=== PATIENT | female | born 1985 | race Caucasian/White ===

== ENCOUNTER → 2017-06-14 | Outpatient (CLI) | payer OTHER ==
--- NOTE | 2017-06-14 15:45 | US ---
EXAMINATION TYPE: US venous doppler duplex LE LT DATE OF EXAM: 06/14/2017 3:34 PM COMPARISON: NONE CLINICAL HISTORY: M25.562 PAIN IN LT KNEE. No hx of blood clots or on blood thinners. Patients state s falling 16 days ago. No swelling or redness. SIDE PERFORMED: Left TECHNIQUE: The lower extremity deep venous system is examined utilizing real time linear array sonog [place] with graded compression, doppler sonography and color-flow sonography. VESSELS IMAGED: External Iliac Vein (EIV) Common Femoral Vein Deep Femoral Vein Greater Saphenous Vein * Femoral Vein Popliteal Vein Small Saphenous Vein * Proximal Calf Veins (* superficial vessels) Grayscale, color doppler, spectral doppler imaging performed of the deep veins of the lower extremity . There is normal flow, compressibility, vascular waveforms. Left Leg: Appears negative for DVT IMPRESSION: No evidence of DVT.
== END | disposition home or self-care (01) ==
LOC: RADUSWWP 15:07
PROVIDERS: ATTEND Orthopaedic Surgery
DX: I80.9 Phlebitis and thrombophlebitis of unspecified site (principal); S72.425A Nondisplaced fracture of lateral condyle of left femur, initial encounter for closed fracture

== ENCOUNTER 2020-05-10 09:27 | Day surgery (SDC) | payer OTHER ==
[2020-05-07 11:12] VITALS: BMI 40.3
[~2020-05-10 09:27] MED LIST: LACTATED RINGERS 1,000 ML IV SCH; LIDOCAINE 1% (10MG/ML) FOR IV START INTRADERMA PRN
[2020-05-10 09:57] VITALS: TEMP 97.7
[2020-05-10] MEDS ORDERED: PROPOFOL 10 MG/ML 20 ML VIAL IV ONE (10:46)
[2020-05-10] MEDS ORDERED: LIDOCAINE 1% INJ 10MG/ML (20 ML MDV) ONE (10:46)
--- NOTE | 2020-05-10 10:57 | P.PCN ---
Date of Procedure: 05/10/20 Procedure(s) Performed: BRIEF HISTORY: Patient is a 34-year-old, pleasant, white female scheduled for an upper endoscopy as a part of evaluation of GERD/abdominal bloating for the last several months duration. She is currently on Prilosec 20 mg daily with no help and hence was recently started on Carafate 1 g twice daily and is a somewhat better.. PROCEDURE PERFORMED: Esophagogastroduodenoscopy with biopsy. PREOPERATIVE DIAGNOSIS: GERD/abdominal bloating. IV sedation per anesthesia. PROCEDURE: After informed consent was obtained, the patient was brought into the endoscopy unit. IV sedation was administered by Anesthesia under continuous monitoring. Initially the Olympus GIF-140 video endoscope was inserted into the mouth. Esophagus intubated without any difficulty. It was gradually advanced into the stomach and duodenum and carefully examined. The bulb and the second part of the duodenum appeared normal. Abscesses were done from the duodenum to rule out celiac disease. The scope at this time was withdrawn to the stomach, adequately insufflated with air, and upon careful examination, mucosa of the antrum had mild gastritis and biopsies were done from this area. The, body, cardia and the fundus appeared normal. The scope was then withdrawn into the esophagus. The GE junction was located at 39 cm from the incisors. The esophagus appeared normal. There were no erosions or ulcerations seen, biopsies were done from the distal esophagus and the patient tolerated the procedure well. IMPRESSION: 1. Mild antral gastritis 2, No evidence of esophagitis or peptic ulcer disease RECOMMENDATIONS: The findings of this examination were discussed with the patient as well as a family. She was advised to follow with the biopsy results. In the meantime she was advised to increase omeprazole to 20 mg twice daily to be taken half hour before breakfast and dinnertime and follow antireflux measures. She will continue with Carafate 1 g twice daily. She will be seen in office in 2-3 weeks.
[2020-05-10 11:05] VITALS: BP 100/67
[2020-05-10 11:26] VITALS: PULSE 68; RESP 16
== END 2020-05-10 11:44 | disposition home or self-care (01) ==
LOC: ORWHC2ENDO 09:27
PROVIDERS: ATTEND Internal Medicine Gastroenterology
DX: K21.00 Gastro-esophageal reflux disease with esophagitis, without bleeding (principal); K29.50 Unspecified chronic gastritis without bleeding; K08.89 Other specified disorders of teeth and supporting structures; Z79.899 Other long term (current) drug therapy; Z79.3 Long term (current) use of hormonal contraceptives; Z88.0 Allergy status to penicillin; Z98.890 Other specified postprocedural states
CPT/HCPCS: 81025; 88305; 43239; J2001; J2704

== ENCOUNTER 2020-09-30 09:17 | Observation (INO) | payer OTHER ==
[~2020-09-30 09:17] MED LIST changes: +ACETAMINOPHEN TAB 500 MG TAB PO PRN; +HEPARIN SODIUM,PORCINE/PF 5,000 UNIT/0.5 ML SYRINGE SQ PRN; -LACTATED RINGERS 1,000 ML IV SCH
[2020-09-30] MEDS: LACTATED RINGERS 1,000 ML IV SCH ×3 (10:38→15:14)
[2020-09-30] MEDS: ONDANSETRON 4 MG/2 ML VIAL IVP ONE ×2 (10:45→15:14)
[2020-09-30] MEDS: DEXAMETHASONE SOD PHOSPHATE 4 MG/ML 1 ML VIAL IV ONE ×2 (10:45→15:14)
[2020-09-30 10:54] LABS: Basophils # (A) 0.1 k/uL (0-0.2); Basophils % (A) 1 %; Eosinophils # (A) 0.1 k/uL (0-0.7); Eosinophils % (A) 1 %; HCT 40.9 % (34.0-46.0); HGB 14.2 gm/dL (11.4-16.0); Lymphocytes # (A) 2.3 k/uL (1.0-4.8); Lymphocytes % (A) 30 %; MCH 31.9 pg (25.0-35.0); MCHC 34.7 g/dL (31.0-37.0); MCV 91.8 fL (80.0-100.0); Mean Platelet Volume 8.4; Monocytes # (A) 0.4 k/uL (0-1.0); Monocytes % (A) 5 %; Neutrophils # (A) 4.8 k/uL (1.3-7.7); Neutrophils % (A) 62 %; Platelet Count 249 k/uL (150-450); RBC 4.46 m/uL (3.80-5.40); RDW 12.3 % (11.5-15.5); WBC 7.8 k/uL (3.8-10.6)
[2020-09-30] MEDS ORDERED: BUPIVACAINE (PF) 0.25% 30 ML VIAL SQ ONE ×2 (12:26→13:00)
[2020-09-30] MEDS ORDERED: MIDAZOLAM 2 MG/2 ML VIAL IV ONE (12:31)
[2020-09-30] MEDS ORDERED: LIDOCAINE 1% INJ 10MG/ML (20 ML MDV) ONE (12:39)
[2020-09-30] MEDS ORDERED: fentaNYL (PF) 50 MCG/ML 2 ML AMP ONE (12:39)
[2020-09-30] MEDS ORDERED: NEOSTIGMINE 1 MG/ML 10 ML VIAL ONE (12:39)
[2020-09-30] MEDS ORDERED: ROCURONIUM 10 MG/ML (5 ML VIAL) IV ONE (12:39)
[2020-09-30] MEDS ORDERED: HYDROmorphone (PF) 1 MG/ML ONE (12:39)
[2020-09-30] MEDS ORDERED: PROPOFOL 10 MG/ML 20 ML VIAL IV ONE (12:39)
[2020-09-30] MEDS ORDERED: KETAMINE 10 MG/ML 20 ML VIAL ONE (12:39)
[2020-09-30] MEDS ORDERED: SUCCINYLCHOLINE CHLORIDE VIAL 200 MG/10 ML VIAL IV ONE (12:39)
[2020-09-30] MEDS ORDERED: MIDAZOLAM 2 MG/2 ML VIAL ONE (12:39)
[2020-09-30] MEDS ORDERED: GLYCOPYRROLATE 0.2 MG/ML 2 ML VIAL ONE (12:39)
--- NOTE | 2020-09-30 13:26 | P.GSHP ---
History of Present Illness H&P Date: 09/30/20 Chief Complaint: GERD Is a 34-year-old female who safer laparoscopic dislocation. She is less lifetime problems with GERD. She's been refractory to medical therapy. Past Medical History Past Medical History: GERD/Reflux Additional Past Medical History / Comment(s): . History of Any Multi-Drug Resistant Organisms: None Reported Past Surgical History: Section Past Anesthesia/Blood Transfusion Reactions: Postoperative Nausea & Vomiting (PONV) Smoking Status: Former smoker - Past Family History Mother Family Medical History: Hypertension Medications and Allergies Home Medications Medication Instructions Recorded Confirmed Type Etonogestrel [Nexplanon] 1 implant SQ [id number] 05/07/20 09/30/20 History Calcium Carbonate [Tums] 500 mg PO QID PRN 09/27/20 09/30/20 History L.acidoph,Paracasei, B.lactis 1 each PO DAILY 09/27/20 09/30/20 History [Probiotic] Allergies Allergy/AdvReac Type Severity Reaction Status Date / Time amoxicillin Allergy Swelling Verified 09/30/20 10:15 Surgical - Exam Vital Signs Temp Pulse Resp BP Pulse Ox 98.0 F 62 18 121/72 100 09/30/20 10:17 09/30/20 10:17 09/30/20 10:17 09/30/20 10:17 09/30/20 10:17 - General well developed, well nourished, no distress - Eyes PERRL - ENT normal pinna - Neck no masses - Respiratory normal expansion - Cardiovascular Rhythm: regular - Abdomen Abdomen: soft, non tender Results - Labs 09/30/20 10:38 Assessment and Plan Plan: . GERD. We'll perform laparoscopic Betty fundoplication.
[2020-09-30] MEDS ORDERED: HYDROmorphone 1 MG/ML 1 ML SYRINGE IVP PRN (13:27)
--- NOTE | 2020-09-30 13:27 | P.OP ---
Date of Procedure: 09/30/20 Preoperative Diagnosis: GERD Postoperative Diagnosis: GERD Procedure(s) Performed: Laparoscopic Betty fundoplication Anesthesia: DINORAH Surgeon: Eder Still Estimated Blood Loss (ml): 10 Pathology: none sent Condition: stable Disposition: PACU Description of Procedure: The patient was placed on the operating table in the supine position. The patient received general anesthesia. And was placed in dorsal lithotomy position. The patient was prepped and draped in the usual sterile fashion. The skin incision sites were anesthetized with 1% local Xylocaine. The skin was incised in the left periumbilical area and then using a blade less 5 mm trocar under direct visualization panel cavity was entered. After adequate insufflation the laparoscope was then placed into the peritoneal cavity. Next a 5 mm trochars placed in the right epigastric position. Another 5 millimeter trocar the right lateral position. Another 5 millimeter trocar in the left lateral position a 5 mm trocar is placed in the left epigastric position. And then the initial 5 mm trocar was exchanged for a 10 mm trocar. The left lateral lobe liver was retracted. The hernia was seen. The crural defect was then dissected using the Harmonic scissors device. A 360 crural dissection was pe rformed the esophagus stomach was reduced back into the peritoneal Cavity. The crural defect was then closed using 2-0 Ethibond suture. Next the fundus of the stomach was mobilized using the [place] scissors device. and then a 58-Cro[place] bougie dilator was placed oropharynx passed into the esophagus and stomach the fundal plication wrap was then performed by grasping the fundus posteriorly and bringing it around the esophagus and stomach fundoplication was then performed using 2-0 Ethibond suture. Care was taken that the fundal location rested over top of the intra-abdominal esophagus. There was no injury seen to the stomach or esophagus. The dilator was then withdrawn. The abdomen was irrigated there is no bleeding seen. The trochars were then withdrawn and then skin incision sites were closed using 3-0 Monocryl suture Steri-Strips are applied. Patient thought procedure well and sent to recovery room in stable condition.
--- NOTE | 2020-09-30 14:54 | P.CONS ---
History of Present Illness - Reason for Consult Perioperative consultation management. - History of Present Illness This is a pleasant 34-year-old female admitted for laparoscopic Betty's fundoplication. Patient is awake and alert at this time no nausea no vomiting post surgical pain is well controlled at this time patient doesn't have any Adams catheter no evidence of infection. Review of Systems PHYSICAL EXAMINATION: GENERAL: The patient is alert and oriented x3, not in any acute distress. Well developed, well nourished. Obese HEENT: Pupils are round and equally reacting to light. EOMI. No scleral icterus. No conjunctival pallor. Normocephalic, atraumatic. No pharyngeal erythema. No thyromegaly. CARDIOVASCULAR: S1 and S2 present. No murmurs, rubs, or gallops. PULMONARY: Chest is clear to auscultation, no wheezing or crackles. ABDOMEN: Soft, nontender, nondistended, normoactive bowel sounds. No palpable organomegaly. Surgical site areas appears to be clean MUSCULOSKELETAL: No joint swelling or deformity. EXTREMITIES: No cyanosis, clubbing, or pedal edema. NEUROLOGICAL: Gross neurological examination did not reveal any focal deficits. SKIN: No rashes. Past Medical History Past Medical History: GERD/Reflux Additional Past Medical History / Comment(s): . History of Any Multi-Drug Resistant Organisms: None Reported Past Surgical History: Section Past Anesthesia/Blood Transfusion Reactions: Postoperative Nausea & Vomiting (PONV) Smoking Status: Former smoker - Past Family History Mother Family Medical History: Hypertension Medications and Allergies Home Medications Medication Instructions Recorded Confirmed Type Etonogestrel [Nexplanon] 1 implant SQ [id number] 05/07/20 09/30/20 History Calcium Carbonate [Tums] 500 mg PO QID PRN 09/27/20 09/30/20 History L.acidoph,Paracasei, B.lactis 1 each PO DAILY 09/27/20 09/30/20 History [Probiotic] Allergies Allergy/AdvReac Type Severity Reaction Status Date / Time amoxicillin Allergy Swelling Verified 09/30/20 10:15 Physical Exam Vitals: Vital Signs Temp Pulse Pulse Resp BP BP Pulse Ox 09/30/20 14:21 61 16 106/59 98 09/30/20 14:06 58 L 16 107/57 96 09/30/20 13:55 60 16 107/57 96 09/30/20 13:40 63 16 119/68 98 09/30/20 13:25 98 F 80 16 126/75 97 09/30/20 10:17 98.0 F 62 18 121/72 100 Intake and Output 09/29/20 09/30/20 09/30/20 22:59 06:59 14:59 Intake Total 850 Output Total 5 Balance 845 Intake: IV 850 Output: Estimated Blood Loss 5 Other: Weight 115.9 kg PHYSICAL EXAMINATION: GENERAL: The patient is alert and oriented x3, not in any acute distress. Well developed, well nourished. HEENT: Pupils are round and equally reacting to light. EOMI. No scleral icterus. No conjunctival pallor. Normocephalic, atraumatic. No pharyngeal erythema. No thyromegaly. CARDIOVASCULAR: S1 and S2 present. No murmurs, rubs, or gallops. PULMONARY: Chest is clear to auscultation, no wheezing or crackles. ABDOMEN: Soft, nontender, nondistended, normoactive bowel sounds. No palpable organomegaly. MUSCULOSKELETAL: No joint swelling or deformity. EXTREMITIES: No cyanosis, clubbing, or pedal edema. NEUROLOGICAL: Gross neurological examination did not reveal any focal deficits. SKIN: No rashes. Results CBC & Chem 7: 09/30/20 10:38 Assessment and Plan Plan: -Gastroesophageal reflux disease patient is a status post Betty's fundoplication pain is well controlled at this time continue with present pain medications. -Due to prophylaxis Lovenox. -GI prophylaxis with the Protonix
[2020-09-30] MEDS: METOCLOPRAMIDE 5 MG/ML 2 ML VIAL IVP SCH (17:35)
--- NOTE | 2020-09-30 17:35 | FL ---
EXAMINATION TYPE: FL esophagus cervic/pharynx DATE OF EXAM: 09/30/2020 HISTORY: Postop hernia repair. Concern for leak. COMPARISON: NONE TECHNIQUE: A single contrast esophagram is performed utilizing water-soluble contrast. Isovue-[id number] us ed. FINDINGS: Preliminary radiograph demonstrates small volume pneumoperitoneum as expected postoperatively. There was focal contrast seen within the distal esophagus which had somewhat of a diverticular. On in itial imaging, however could not be duplicated consistently on subsequent images, and may have been r elated to mucous/debris within the esophagus. There is minimal to no significant narrowing at the lev el of the proximal stomach. There is near-complete delayed esophageal emptying. No abnormal contrast extravasation. Total fluoroscopy time: 1 minute 30 seconds. Total images obtained: 8 IMPRESSION: 1. No abnormal contrast extravasation. 2. Minimal to no significant narrowing at the proximal stomach postoperative site. 3. Small volume pneumoperitoneum as expected postoperatively. 4. Questionable esophageal diverticulum distally. Follow-up esophagram could be obtained after recove ry from postoperative state for further evaluation.
[2020-09-30] MEDS: ONDANSETRON 4 MG/2 ML VIAL IVP PRN (20:59)
[2020-09-30] MEDS: D5-0.45% NACL WITH KCL 20MEQ/L 1,000 ML IV SCH ×2 (21:45)
[2020-10-01] MEDS: METOCLOPRAMIDE 5 MG/ML 2 ML VIAL IVP SCH ×3 (01:04→12:17)
[2020-10-01] MEDS: D5-0.45% NACL WITH KCL 20MEQ/L 1,000 ML IV SCH (05:10)
[2020-10-01] MEDS: ONDANSETRON 4 MG/2 ML VIAL IVP PRN (05:12)
[2020-10-01 08:53] VITALS: PULSE 88; RESP 16
[2020-10-01] MEDS ORDERED: PANTOPRAZOLE 40 MG/10 ML VIAL IVP SCH (09:00)
[2020-10-01] MEDS ORDERED: ENOXAPARIN 40 MG/0.4 ML SYRINGE SQ SCH (09:00)
[2020-10-01] MEDS: ACETAMINOPHEN TAB 325 MG TAB PO PRN ×2 (09:01→14:23)
[2020-10-01] MEDS ORDERED: SIMETHICONE 80 MG CHEWABLE PO PRN (10:04)
[2020-10-01 12:45] VITALS: BMI 38.8
--- NOTE | 2020-10-01 13:58 | P.DS ---
Providers Date of admission: 09/30/20 23:09 Expected date of discharge: 10/01/20 Attending physician: Eder Still Consults: 09/30/20 13:27 Consult Physician Routine Consulting Provider: Gali Woodard Consult Reason/Comments: Medical management Do you want consulting provider notified?: Yes Primary care physician: [facility] Course: Discharge diagnosis 1. GERD status post laparoscopic Betty fundoplication Hospital course This is a 34-year-old female with a known history of GERD. She is status post laparoscopic Betty fundoplication. She tolerated surgery well. Upper GI shows no abnormal contrast extravasation. Minimal to no significant narrowing at the proximal stomach postoperative site. Patient is tolerating the Betty clear liquid diet. She is passing gas. She has been up and ambulating. Her pain is controlled. She's afebrile. She is stable for discharge. Please refer to chart for any further details. 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 Signing provider agrees with the documented findings, assessment, and plan of care. Patient Condition at Discharge: Stable Plan - Discharge Summary Discharge Rx Participant: No New Discharge Prescriptions: New Simethicone Chew [Mylicon Chew] 80 mg PO QID PRN #30 chew PRN Reason: gas Acetaminophen Tab [Tylenol Tab] 650 mg PO Q4H PRN #30 tablet PRN Reason: Pain Continue Etonogestrel [Nexplanon] 1 implant SQ [id number] Calcium Carbonate [Tums] 500 mg PO QID PRN PRN Reason: gerd L.acidoph,Paracasei, B.lactis [Probiotic] 1 each PO DAILY Discharge Medication List Etonogestrel [Nexplanon] 1 implant SQ [id number] 05/07/20 [History] Calcium Carbonate [Tums] 500 mg PO QID PRN 09/27/20 [History] L.acidoph,Paracasei, B.lactis [Probiotic] 1 each PO DAILY 09/27/20 [History] Acetaminophen Tab [Tylenol Tab] 650 mg PO Q4H PRN #30 tablet 10/01/20 [Rx] Simethicone Chew [Mylicon Chew] 80 mg PO QID PRN #30 chew 10/01/20 [Rx] Follow up Appointment(s)/Referral(s): Eder Still MD [STAFF PHYSICIAN] - 1 Week Activity/Diet/Wound Care/Special Instructions: No lifting over 10 pounds You may shower. No soaking or tub baths for 2 weeks Very light activity until you are reevaluated at your follow up appointment with your surgeon Discharge Disposition: HOME SELF-CARE
[2020-10-01 14:06] VITALS: BP 127/78; TEMP 98
--- NOTE | 2020-10-01 16:37 | P.PN ---
Subjective This is a pleasant 34-year-old female admitted for laparoscopic Betty's fundoplication. Patient is awake and alert at this time no nausea no vomiting post surgical pain is well controlled at this time patient doesn't have any Adams catheter no evidence of infection. 10/01/2020 Patient is having mild nausea although patient the is passing gas and the patient upper GI series did not show any extravasation. Patient is being discharged today. Constitutional: Denied any fatigue denied any fever. Cardio vascular: denied any chest pain, palpitations Gastrointestinal denied any vomiting Pulmonary: Denied any shortness of breath cough Neurologic denied any new focal deficits All inpatient medications were reviewed and appropriate changes in these medications as dictated in the interval history and assessment and plan. Objective - Vital Signs Vital signs: Vital Signs Temp 98.0 F 10/01/20 14:00 Pulse 88 10/01/20 08:30 Resp 16 10/01/20 14:00 BP 127/78 10/01/20 14:00 Pulse Ox 99 10/01/20 14:00 Intake & Output 09/30/20 10/01/20 10/01/20 18:59 06:59 18:59 Intake Total 850 1375 500 Output Total 5 Balance 845 1375 500 Weight 115.9 kg 115.9 kg Intake: IV 850 Intake, IV Titration 1375 Amount D5-0.45% NaCl with KCl 1375 20Meq/l 1,000 ml @ 125 mls/hr IV .Q8H [facility] Rx#: [id number] Oral 500 Output: Estimated Blood Loss 5 Other: Voiding Method Toilet # Voids 0 4 1 - Exam PHYSICAL EXAMINATION: GENERAL: The patient is alert and oriented x3, not in any acute distress. Well developed, well nourished. HEENT: Pupils are round and equally reacting to light. EOMI. No scleral icterus. No conjunctival pallor. Normocephalic, atraumatic. No pharyngeal erythema. No thyromegaly. CARDIOVASCULAR: S1 and S2 present. No murmurs, rubs, or gallops. PULMONARY: Chest is clear to auscultation, no wheezing or crackles. ABDOMEN: Soft, nontender, nondistended, normoactive bowel sounds. No palpable organomegaly. MUSCULOSKELETAL: No joint swelling or deformity. EXTREMITIES: No cyanosis, clubbing, or pedal edema. NEUROLOGICAL: Gross neurological examination did not reveal any focal deficits. SKIN: No rashes. - Labs CBC & Chem 7: 09/30/20 10:38 Assessment and Plan Plan: -Gastroesophageal reflux disease patient is a status post Betty's fundoplication patient is clinically doing well and is being discharged today Patient is medically stable to be discharged.
== END 2020-10-01 14:50 | disposition home or self-care (01) ==
LOC: OR 09:17 → 6PED 13:16 → OR 23:09 → 6PED 23:09
PROVIDERS: ADMIT Surgery; ATTEND Surgery
DX: K21.9 Gastro-esophageal reflux disease without esophagitis (principal); Z20.822 Contact with and (suspected) exposure to COVID-19; E66.9 Obesity, unspecified; Z68.38 Body mass index [BMI] 38.0-38.9, adult; Z88.0 Allergy status to penicillin; Z88.8 Allergy status to other drugs, medicaments and biological substances; Z98.891 History of uterine scar from previous surgery; Z87.891 Personal history of nicotine dependence; Z82.49 Family history of ischemic heart disease and other diseases of the circulatory system
CPT/HCPCS: 43280; 81025; 85025; 87635; 74210; G0378 ×2; J2250; J1100; J0690; J2405 ×2; J1650; C9113; Q9967; J1644

== ENCOUNTER → 2021-01-10 | Outpatient (CLI) | payer OTHER ==
--- NOTE | 2021-01-10 12:24 | FL ---
EXAMINATION TYPE: FL UGI air w esophagus DATE OF EXAM: 01/10/2021 COMPARISON: Postoperative esophagram 09/30/2020 HISTORY: 35-year-old female R1 3.19, dysphagia. Patient with Betty fundoplication 3 months ago with epigastric pain. TECHNIQUE: A double contrast UGI study is performed. A total of 4 minutes 32 seconds of fluoroscopi c time was utilized during procedure and 51 images obtained. FINDINGS: The swallowing mechanism is normal and hypopharyngeal anatomy is preserved. The cervical and thoracic portions have a normal course and motility. There is mild narrowing at the GE junction with evidence of prior Betty fundoplication. On the upright swallowing, there is only at the distal esophagus and delayed clearance. A few episodes of intraesophageal reflux are noted. The mucosa is normal and no persistent filling defect is encountered. No recurrent hiatal hernia. Gastroesophageal reflux could not be elicited. The stomach and duodenum are free of any persistent filling defect. There may be mild fold thickening within the stomach. Again, postsurgical changes of Betty fundoplication. IMPRESSION: 1. Status post Betty fundoplication with mild narrowing at the GE junction. Findings could represent a slightly tight wrap. On upright swallowing, there is pooling in the distal esophagus and a few epi sodes of intraesophageal reflux noted. 2. No recurrent hiatal hernia or mucosal lesion. 3. Some gastric fold thickening could represent a mild gastritis.
== END | disposition home or self-care (01) ==
LOC: RADUSWWP 08:51
PROVIDERS: ATTEND Surgery
DX: R13.19 Other dysphagia (principal)
CPT/HCPCS: 74246

== ENCOUNTER 2021-01-20 10:11 | Day surgery (SDC) | payer OTHER ==
[2021-01-19 11:12] VITALS: BMI 38.7
[~2021-01-20 10:11] MED LIST changes: -ACETAMINOPHEN TAB 500 MG TAB PO PRN; -HEPARIN SODIUM,PORCINE/PF 5,000 UNIT/0.5 ML SYRINGE SQ PRN; +LACTATED RINGERS 1,000 ML IV SCH; -LIDOCAINE 1% (10MG/ML) FOR IV START INTRADERMA PRN
[2021-01-20 11:01] VITALS: TEMP 97.7
[2021-01-20] MEDS ORDERED: LIDOCAINE 1% INJ 10MG/ML (20 ML MDV) ONE (11:50)
[2021-01-20] MEDS ORDERED: PROPOFOL 10 MG/ML 20 ML VIAL IV ONE (11:50)
--- NOTE | 2021-01-20 11:54 | P.GSHP ---
History of Present Illness H&P Date: 01/20/21 Chief Complaint: Dysphagia This a 35-year-old female who's had complaints dysphagia. She'll stay for EGD and possible dilatation Past Medical History Past Medical History: GERD/Reflux Additional Past Medical History / Comment(s): . History of Any Multi-Drug Resistant Organisms: None Reported Past Surgical History: Section Additional Past Surgical History / Comment(s): sheron fundoplication Past Anesthesia/Blood Transfusion Reactions: Postoperative Nausea & Vomiting (PONV) Smoking Status: Former smoker - Past Family History Mother Family Medical History: Hypertension Medications and Allergies Home Medications Medication Instructions Recorded Confirmed Type No Known Home Medications 01/19/21 01/19/21 History Allergies Allergy/AdvReac Type Severity Reaction Status Date / Time amoxicillin Allergy Swelling Verified 01/20/21 10:56 metoclopramide [From Reglan] AdvReac Unknown Verified 01/20/21 10:56 Surgical - Exam Vital Signs Temp Pulse Resp BP Pulse Ox 97.7 F 65 16 115/69 96 01/20/21 10:59 01/20/21 10:59 01/20/21 10:59 01/20/21 10:59 01/20/21 10:59 - General well developed, well nourished, no distress - Eyes PERRL - ENT normal pinna - Neck no masses - Respiratory normal expansion Assessment and Plan Plan: Dysphagia, we'll perform EGD with possible dilatation.
--- NOTE | 2021-01-20 12:07 | P.OP ---
Date of Procedure: 01/20/21 Preoperative Diagnosis: Dysphagia Postoperative Diagnosis: Antral gastritis Possible stricture of GE junction Procedure(s) Performed: EGD with balloon dilatation Anesthesia: MAC Surgeon: Eder Still Pathology: other (Antrum) Condition: stable Disposition: PACU Description of Procedure: The patient's placed on the endoscopy table in the lateral position her she received IV sedation. The gastroscope patient oropharynx passed in the esophagus into the stomach. Scope was placed through the pylorus. The first and second portion of the duodenum appeared normal. Scope was then brought back the antrum was mildly inflamed. A biopsies performed. Scope was then retroflexed and the remainder stomach appeared all. Due to the patient's ability dysphagia a balloon was placed across the GE junction. The 20 mm balloon was placed across the GE junction. This was held position. There is no injury to the stomach. Scope was then withdrawn. Balloon was withdrawn. Patient thought procedure well.
[2021-01-20 12:29] VITALS: BP 114/77; PULSE 59; RESP 16
== END 2021-01-20 12:53 | disposition home or self-care (01) ==
LOC: ORWHC2ENDO 10:11
PROVIDERS: ATTEND Surgery
DX: K29.60 Other gastritis without bleeding (principal); K31.9 Disease of stomach and duodenum, unspecified; K21.9 Gastro-esophageal reflux disease without esophagitis; Z82.49 Family history of ischemic heart disease and other diseases of the circulatory system; Z87.891 Personal history of nicotine dependence; Z88.8 Allergy status to other drugs, medicaments and biological substances
CPT/HCPCS: 43239; 43249; 81025; 88305; J2001; J2704

== ENCOUNTER → 2021-02-11 | Outpatient (CLI) | payer OTHER ==
--- NOTE | 2021-02-11 09:07 | NM ---
Nuclear medicine hepatobiliary scan. HISTORY: Pain. DOSAGE: The patient received 2.1 micrograms of CCK and 5.4 mCi of Technetium 99m Choletec. FINDINGS: There is normal hepatic extraction. The gallbladder is seen by 20 minutes. There is bilia ry to bowel clearance by 20 minutes. Ejection fraction is 96%. IMPRESSION: 1. No diagnostic evidence of cholecystitis. 2. Ejection fraction of 96% correlate for hyperdynamic gallbladder.
== END | disposition home or self-care (01) ==
LOC: RADNMMAIN 06:52
PROVIDERS: ATTEND Surgery
DX: K82.8 Other specified diseases of gallbladder (principal)
CPT/HCPCS: 78227; A9537; J2805

== ENCOUNTER 2021-02-23 08:20 | Day surgery (SDC) | payer OTHER ==
[2021-02-21 14:15] VITALS: BMI 34.2
[~2021-02-23 08:20] MED LIST changes: +ACETAMINOPHEN TAB 500 MG TAB PO PRN; +DEXAMETHASONE SOD PHOSPHATE 4 MG/ML 1 ML VIAL IV ONE; +HEPARIN SODIUM,PORCINE/PF 5,000 UNIT/0.5 ML SYRINGE SQ PRN; +HYDROmorphone 0.5 MG/0.5 ML SYRINGE IVP PRN; +LIDOCAINE 1% (10MG/ML) FOR IV START INTRADERMA PRN; +ONDANSETRON 4 MG/2 ML VIAL IVP ONE; +SCOPOLAMINE 1.5MG/72HR PATCH TRANSDERM ONE
[2021-02-23 08:48] VITALS: RESP 16
--- NOTE | 2021-02-23 10:05 | P.GSHP ---
History of Present Illness H&P Date: 02/23/21 Chief Complaint: Right upper quadrant pain This a 35-year-old female who presents today for laparoscopic cholecystectomy. Patient with frequent pain. Her HIDA scan shows evidence of chronic cholecystitis. She has elevated ejection fraction. Past Medical History Past Medical History: GERD/Reflux Additional Past Medical History / Comment(s): . History of Any Multi-Drug Resistant Organisms: None Reported Past Surgical History: Section Additional Past Surgical History / Comment(s): sheron fundoplication, EDG. Past Anesthesia/Blood Transfusion Reactions: Postoperative Nausea & Vomiting (PONV) Smoking Status: Former smoker - Past Family History Mother Family Medical History: Hypertension Medications and Allergies Home Medications Medication Instructions Recorded Confirmed Type Etonogestrel [Nexplanon] 1 implant SQ [id number] 02/21/21 02/21/21 History Allergies Allergy/AdvReac Type Severity Reaction Status Date / Time amoxicillin Allergy Swelling Verified 02/23/21 08:52 metoclopramide [From Reglan] AdvReac Unknown Verified 02/23/21 08:52 Surgical - Exam Vital Signs Temp Pulse Resp BP Pulse Ox 97.8 F 56 L 16 130/81 100 02/23/21 08:47 02/23/21 08:47 02/23/21 08:47 02/23/21 08:47 02/23/21 08:47 - General well developed, well nourished, no distress - Eyes PERRL - ENT normal pinna - Neck no masses - Respiratory normal expansion - Cardiovascular Rhythm: regular - Abdomen Abdomen: soft, non tender Assessment and Plan Assessment: Right upper quadrant pain Chronic cholecystitis We'll perform laparoscopic cholecystectomy
[2021-02-23] MEDS ORDERED: NEOSTIGMINE 1 MG/ML 10 ML VIAL ONE (10:22)
[2021-02-23] MEDS ORDERED: KETOROLAC 15 MG/ML 1 ML VIAL ONE (10:22)
[2021-02-23] MEDS ORDERED: ROCURONIUM 10 MG/ML (5 ML VIAL) IV ONE (10:22)
[2021-02-23] MEDS ORDERED: MIDAZOLAM 2 MG/2 ML VIAL ONE (10:22)
[2021-02-23] MEDS ORDERED: PROPOFOL 10 MG/ML 20 ML VIAL IV ONE (10:22)
[2021-02-23] MEDS ORDERED: fentaNYL (PF) 50 MCG/ML 2 ML AMP ONE (10:22)
[2021-02-23] MEDS ORDERED: GLYCOPYRROLATE 0.2 MG/ML 2 ML VIAL ONE (10:22)
[2021-02-23] MEDS ORDERED: BUPIVACAINE (PF) 0.25% 30 ML VIAL SQ ONE (10:40)
--- NOTE | 2021-02-23 11:01 | P.OP ---
Date of Procedure: 02/23/21 Preoperative Diagnosis: Cholecystitis Postoperative Diagnosis: Cholecystitis Procedure(s) Performed: Laparoscopic cholecystectomy Anesthesia: DINORAH Surgeon: Eder Still Estimated Blood Loss (ml): 5 Pathology: other (Gallbladder) Condition: stable Disposition: PACU Description of Procedure: The patient was placed on the operating table. The patient received a general endotracheal tube anesthesia. The patients abdomen was prepped and draped in the usual sterile fashion. Through an infraumbilical stab incision, the fascia of the anterior abdominal wall was grasped with a pair of Kochers and then the Veress needle was placed in the peritoneal cavity. Position of the Veress needle was confirmed with positive drop test. The abdomen was then insufflated. After adequate insufflation, the 10 mm trocar was placed in the peritoneal cavity. Following this the laparoscope was placed in the peritoneal cavity. The patient was placed in the head-up, right side up position and then a 5 mm trocar was placed in the right lateral and right subcostal position under direct visualization. A 8 mm trocar was placed in the epigastric position. The gallbladder was grasped in the fundus and infundibulum. Traction on the gallbladder was placed in the lateral and the cephalad positions. The triangle of Calot was visualized.. The cystic duct was bluntly dissected until the union of the cystic duct and common bile duct was seen. A critical view of safety was achieved. The cystic duct was then divided and sealed with the Harmonic scissors. A PDS Endoloop was then placed throughout the cystic duct stump. The cystic artery divided and sealed with the Harmonic scissors. The gallbladder was then removed from the liver bed using Harmonic scissors. The gallbladder was then extracted through the epigastric port site. Operative field was checked for any bleeding spots and Harmonic scissors was used to coagulate the liver bed. The abdomen was irrigated. The trocars were removed. The skin was closed using interrupted 3-0 Vicryl suture. Dermabond dressing were applied. The patient tolerated the procedure well.
[2021-02-23 11:14] VITALS: TEMP 98
[2021-02-23] MEDS ORDERED: SODIUM CHLORIDE 0.9% 1,000 ML IV ONE ×2 (11:39)
[2021-02-23 13:17] VITALS: BP 117/66; PULSE 58
== END 2021-02-23 14:24 | disposition home or self-care (01) ==
LOC: OR 08:20
PROVIDERS: ATTEND Surgery
DX: K81.1 Chronic cholecystitis (principal); K21.9 Gastro-esophageal reflux disease without esophagitis; Z82.49 Family history of ischemic heart disease and other diseases of the circulatory system; Z87.891 Personal history of nicotine dependence; Z88.8 Allergy status to other drugs, medicaments and biological substances; Z79.890 Hormone replacement therapy
CPT/HCPCS: 47562; 81025; J1100; J2250; J2710; J0690; J2405; J3010; J1885; J2704; J1170; J1644; 88304

== ENCOUNTER → 2021-04-07 | Outpatient (CLI) | payer OTHER ==
--- NOTE | 2021-04-11 09:51 | MM ---
Reason for exam: screening (asymptomatic). History: Taking hormonal contraceptives for 21 years beginning at age 14. Physical Findings: Nurse did not find any significant physical abnormalities on exam. MG 3D Screening Mammo W/Cad Bilateral CC and MLO view(s) were taken. There are scattered fibroglandular densities. ASSESSMENT: Negative, BI-RAD 1 RECOMMENDATION: Routine screening mammogram of both breasts in 1 year.
== END | disposition home or self-care (01) ==
LOC: RADMAMWWP 10:20
PROVIDERS: ATTEND Obstetrics & Gynecology
DX: Z12.31 Encounter for screening mammogram for malignant neoplasm of breast (principal)
CPT/HCPCS: 77063; 77067

== ENCOUNTER → 2021-04-26 | Outpatient (CLI) | payer OTHER ==
--- NOTE | 2021-04-26 16:16 | FL ---
EXAMINATION TYPE: FL UGI air w esophagus DATE OF EXAM: 04/26/2021 COMPARISON: None HISTORY: Dysphasia, history of Ashok fundoplication TECHNIQUE: Single contrast technique was utilized to evaluate the esophagus and upper gastrointestina l tract. FINDINGS: Esophagus is somewhat prominent to the gastroesophageal junction. Changes compatible with t he patient's recent fundoplication are present at the gastroesophageal junction. Note is made of gastroesophageal reflux present during the exam. Upper GI: Fundus body and antrum of the stomach as visualized appear normal. There is prompt spill of contrast into the duodenal cap and sweep. Ligament of Treitz is in a normal position. There appears to be some mild duodenal fold hypertrophy. Correlate for mild duodenitis. Gastric folds appear normal. Fluoroscopy time: 1 minute 15 seconds. Images: 220 IMPRESSION: 1. Mild gastroesophageal reflux during this exam. 2. Status post Ashok fundoplication. 3. Normal stomach. 4. Clinical consideration for mild duodenitis.
== END | disposition home or self-care (01) ==
LOC: RADFLMAIN 10:43
PROVIDERS: ATTEND Surgery
DX: K21.9 Gastro-esophageal reflux disease without esophagitis (principal); Z96.692 Finger-joint replacement of left hand
CPT/HCPCS: 74246

== ENCOUNTER → 2022-08-22 | Outpatient (CLI) | payer OTHER ==
[2022-08-22 22:34] LABS: Basophils # (A) 0.08 X 10*3/uL (0.00-0.10); Basophils % (A) 0.7 %; Eosinophils # (A) 0.14 X 10*3/uL (0.04-0.35); Eosinophils % (A) 1.3 %; HCT 43.1 % (37.2-46.3); HGB 14.2 g/dL (12.0-15.0); Immature Grans, Automated 0.3 %; Lymphocytes # (A) 2.95 X 10*3/uL (0.90-5.00); Lymphocytes % (A) 27.5 %; MCHC 32.9 g/dL (32.0-37.0); MCV 97.1 fL (80.0-97.0); Mean Platelet Volume 11.9 fL (9.5-12.2); Monocytes # (A) 0.61 X 10*3/uL (0.20-1.00); Monocytes % (A) 5.7 %; NRBC Per 100 WBC 0 /100 WBCS (0.0-0.0); Neutrophils # (A) 6.91 X 10*3/uL (1.80-7.70); Neutrophils % (A) 64.5 %; Platelet Count 275 X 10*3/uL (140-440); RBC 4.44 X 10*6/uL (4.10-5.20); RDW 12.3 % (11.5-14.5); WBC 10.72 X 10*3/uL (4.50-10.00)
== END | disposition home or self-care (01) ==
LOC: LABPAT 14:30
PROVIDERS: ATTEND Surgery
DX: Z01.812 Encounter for preprocedural laboratory examination (principal)
CPT/HCPCS: 36415; 85025

== ENCOUNTER 2022-08-28 05:45 | Day surgery (SDC) | payer OTHER ==
[2022-08-23 16:13] VITALS: BMI 40.3
[~2022-08-28 05:45] MED LIST changes: -DEXAMETHASONE SOD PHOSPHATE 4 MG/ML 1 ML VIAL IV ONE; -HYDROmorphone 0.5 MG/0.5 ML SYRINGE IVP PRN; -LACTATED RINGERS 1,000 ML IV SCH; -LIDOCAINE 1% (10MG/ML) FOR IV START INTRADERMA PRN; -ONDANSETRON 4 MG/2 ML VIAL IVP ONE; -SCOPOLAMINE 1.5MG/72HR PATCH TRANSDERM ONE; +ceFAZolin 3 GM in SODIUM CHLORIDE 0.9% 100 ML IVPB PRN
[2022-08-28] MEDS ORDERED: SCOPOLAMINE 1 MG/72 HR PATCH TRANSDERM ONE (06:35)
[2022-08-28] MEDS ORDERED: MIDAZOLAM 2 MG/2 ML VIAL IV PRN (06:35)
[2022-08-28] MEDS ORDERED: ONDANSETRON 4 MG/2 ML VIAL IVP ONE (06:35)
[2022-08-28] MEDS ORDERED: DEXAMETHASONE SOD PHOSPHATE 4 MG/ML 1 ML VIAL IV ONE (06:35)
[2022-08-28] MEDS: LACTATED RINGERS 1,000 ML IV SCH (06:40)
[2022-08-28] MEDS ORDERED: HYDROmorphone 0.5 MG/0.5 ML SYRINGE IVP PRN (07:00)
[2022-08-28] MEDS ORDERED: fentaNYL (PF) 50 MCG/ML 2 ML AMP ONE (07:38)
[2022-08-28] MEDS ORDERED: SUCCINYLCHOLINE CHLORIDE 200 MG/10 ML VIAL IV ONE (07:38)
[2022-08-28] MEDS ORDERED: MIDAZOLAM 2 MG/2 ML VIAL ONE (07:38)
[2022-08-28] MEDS ORDERED: PROPOFOL 10 MG/ML 20 ML VIAL IV ONE (07:38)
[2022-08-28] MEDS ORDERED: KETOROLAC 15 MG/ML 1 ML VIAL ONE (07:38)
[2022-08-28] MEDS ORDERED: ROCURONIUM 10 MG/ML (5 ML VIAL) IV ONE (07:38)
[2022-08-28] MEDS ORDERED: KETAMINE 10 MG/ML 20 ML VIAL ONE (07:38)
[2022-08-28] MEDS ORDERED: LIDOCAINE 2% INJ 20 MG/ML (2 ML VIAL) ONE (07:38)
[2022-08-28] MEDS ORDERED: BUPIVACAIN-EPI 0.25%-1:200,000 30 ML VIAL SQ ONE (08:15)
[2022-08-28] MEDS ORDERED: HYDROmorphone 1 MG/ML 1 ML SYRINGE IVP PRN (08:57)
--- NOTE | 2022-08-28 08:57 | P.OP ---
Date of Procedure: 08/28/22 Preoperative Diagnosis: Dysphagia Recurrent hiatal hernia Postoperative Diagnosis: Dysphagia Recurrent hiatal hernia Procedure(s) Performed: Laparoscopic repair of recurrent hiatal hernia Anesthesia: DINORAH Surgeon: Eder Still Estimated Blood Loss (ml): 5 Pathology: none sent Condition: stable Disposition: PACU Description of Procedure: The patient was placed on the operating table in the supine position. The patient received general anesthesia. And was placed in dorsal lithotomy position. The patient was prepped and draped in the usual sterile fashion. The skin incision sites were anesthetized with 1% local Xylocaine. The skin was incised in the left periumbilical area and then using a blade less 5 mm trocar under direct visualization panel cavity was entered. After adequate insufflation the laparoscope was then placed into the peritoneal cavity. Next a 5 mm trochars placed in the right epigastric position. Another 5 millimeter trocar the right lateral position. Another 5 millimeter trocar in the left lateral position a 5 mm trocar is placed in the left epigastric position. And then the initial 5 mm trocar was exchanged for a 10 mm trocar. The left lateral lobe liver was retracted. The hernia was seen. The crural defect was then dissected using the Harmonic scissors device. A 360 crural dissection was performed the esophagus stomach was reduced back into the peritoneal Cavity. The crural defect was then closed using 2-0 Ethibond suture. . There was no injury seen to the stomach or esophagus. The dilator was then withdrawn. The abdomen was irrigated there is no bleeding seen. The trochars were then withdrawn and then skin incision sites were closed using 3-0 Monocryl suture Steri-Strips are applied. Patient thought procedure well and sent to recovery room in stable condition.
[2022-08-28] MEDS ORDERED: LACTATED RINGERS 1,000 ML IV ONE ×2 (09:46→12:53)
[2022-08-28] MEDS: ONDANSETRON 4 MG/2 ML VIAL IVP PRN (16:27)
[2022-08-28] MEDS: METOCLOPRAMIDE 5 MG/ML 2 ML VIAL IVP SCH ×3 (17:40→19:30)
[2022-08-28] MEDS: FAMOTIDINE 20 MG/2 ML VIAL IV SCH ×2 (17:40→21:05)
[2022-08-28] MEDS: D5-0.45% NACL WITH KCL 20MEQ/L 1,000 ML IV SCH (18:05)
[2022-08-28] MEDS ORDERED: SODIUM CHLORIDE 0.65% NASAL SPRAY 44 ML BTL NASAL PRN (18:15)
[2022-08-28] MEDS ORDERED: ETONOGESTREL 68 MG SQ SCH (21:15)
--- NOTE | 2022-08-28 22:35 | P.CONS ---
History of Present Illness - Reason for Consult Consult date: 08/28/22 Medical management Requesting physician: Eder Still - Chief Complaint Hiatal hernia repair - History of Present Illness This is a pleasant 36-year-old patient who follows with Dr. Tunde Turner. Patient was operated upon for recurrent hiatal hernia. Severe reflux symptoms. Often time patient get acid into her throat. Patient also had COVID. Her sense of smell is significantly affected. Postprocedure patient is on betty clear liquid diet. Some discomfort at the operative site. No nausea vomiting. Review of systems: GEN.: None EYES: None HEENT: As above NECK: None RESPIRATORY: None CARDIOVASCULAR: None GASTROINTESTINAL: As above GENITOURINARY: None MUSCULOSKELETAL: None LYMPHATICS: None HEMATOLOGICAL: None PSYCHIATRY: None NEUROLOGICAL: None Past medical history to include: Hiatal hernia. GERD. COVID. Social history: . Homemaker. No smoking or alcohol Physical examination: VITAL SIGNS: 97.9, 58, 14, 105/71, 97% room air GENERAL: BMI 40.9, declining but awake not in distress. EYES: Pupils equal. Conjunctiva normal. HEENT: External appearance of nose and ears normal, oral cavity grossly normal. NECK: JVD unable to assess; masses not palpable. HEART: First and second heart sounds are normal; no edema. LUNGS: Respiratory rate normal; clear to auscultation. ABDOMEN: Soft, mild epigastric tenderness, liver spleen not palpable, no masses palpable. PSYCH: Alert and oriented x3; mood and affect normal. MUSCULOSKELETAL:No Clubbing/cyanosis;muscles-grossly intact NEUROLOGICAL: Cranial nerves grossly intact; no facial asymmetry, power and sensation grossly intact. LYMPHATICS: No lymph nodes palpable in the axilla and neck INVESTIGATIONS, reviewed in the clinical context: 08/22/2022: White count 10.7 hemoglobin 14.2 platelets 275 Assessment and plan: -Laparoscopic repair of recurrent hiatal hernia or significant reflux symptoms -Severe GERD PPI -Morbid obesity BMI 40.9 Weight loss measures -Hyposmia, from prior COVID infection IV fluids. Pain control. IV Protonix. Scopolamine patch. Venodyne boots. Care was discussed with the patient. Activity as tolerated. Thank you Dr. Still Past Medical History Past Medical History: GERD/Reflux Additional Past Medical History / Comment(s): Hx Covid-difficulty smelling. Constipation. History of Any Multi-Drug Resistant Organisms: None Reported Past Surgical History: Section, Cholecystectomy Additional Past Surgical History / Comment(s): Betty fundoplication, EGD's, section X2, colonoscopy. Past Anesthesia/Blood Transfusion Reactions: Postoperative Nausea & Vomiting (PONV) Additional Past Anesthesia/Blood Transfusion Reaction / Comm: PONV with sections. Past Psychological History: No Psychological Hx Reported Smoking Status: Former smoker Past Alcohol Use History: None Reported Additional Past Alcohol Use History / Comment(s): Quit smoking in 2011, smoked less than 1ppd. Past Drug Use History: None Reported - Past Family History Father Additional Family Medical History / Comment(s): Fathers Mother had pancreatic cancer Mother Family Medical History: Hypertension Medications and Allergies Home Medications Medication Instructions Recorded Confirmed Type Etonogestrel [Nexplanon] 1 implant SQ DIRECTED 02/21/21 08/23/22 History Famotidine [Pepcid] 20 mg PO BID PRN 07/26/22 08/23/22 History Pantoprazole [Protonix] 40 mg PO QAM 07/31/22 08/23/22 History Fexofenadine/Pseudoephedrine 1 tab PO DAILY 08/23/22 08/23/22 History [Marielena-D 24 Hour Tablet] Fluticasone Nasal Mason [Flonase 1 spray EA NOSTRIL DAILY PRN 08/23/22 08/23/22 History Nasal Mason] Allergies Allergy/AdvReac Type Severity Reaction Status Date / Time amoxicillin Allergy Anaphylaxis Verified 08/23/22 16:15 doxycycline Allergy Unknown Verified 08/23/22 16:15 Penicillins Allergy Anaphylaxis Verified 08/23/22 16:15 metoclopramide [From Reglan] AdvReac pt was Verified 08/23/22 16:15 very sleepy and dizzy Physical Exam Vitals: Vital Signs Temp Pulse Resp BP Pulse Ox 08/28/22 20:00 58 L 14 08/28/22 18:44 97.9 F 58 L 14 105/71 97 08/28/22 17:09 81 16 102/64 98 08/28/22 16:33 77 16 96/57 93 L 08/28/22 16:05 106 H 18 107/63 92 L 08/28/22 15:31 98 18 123/84 96 08/28/22 13:57 76 18 120/57 98 04/03/23 13:30 78 18 124/59 98 08/28/22 13:00 65 18 110/58 97 08/28/22 12:26 67 18 112/61 97 08/28/22 12:00 58 L 18 104/59 96 08/28/22 11:30 59 L 18 100/56 96 08/28/22 10:57 66 18 102/50 97 08/28/22 10:27 58 L 18 93/55 96 08/28/22 09:58 69 18 109/51 99 08/28/22 09:42 66 18 120/64 99 08/28/22 09:27 75 18 123/64 99 08/28/22 09:12 72 18 125/62 100 08/28/22 08:57 97.2 F L 79 24 128/62 100 08/28/22 06:40 98.4 F 66 20 122/81 100 Intake and Output 08/28/22 08/28/22 08/28/22 06:59 14:59 22:59 Intake Total 100 1999 Output Total 5 Balance 100 1994 Intake: IV 100 1999 Output: Estimated Blood Loss 5 Other: Weight 122.1 kg
[2022-08-28] MEDS: PANTOPRAZOLE 40 MG/10 ML VIAL IVP SCH (23:02)
[2022-08-29] MEDS: METOCLOPRAMIDE 5 MG/ML 2 ML VIAL IVP SCH ×4 (01:39→12:21)
[2022-08-29 01:55] VITALS: RESP 15
[2022-08-29] MEDS: D5-0.45% NACL WITH KCL 20MEQ/L 1,000 ML IV SCH ×2 (02:13→11:37)
[2022-08-29] MEDS: LACTATED RINGERS 1,000 ML IV SCH (06:44)
[2022-08-29 07:55] VITALS: BP 116/73; PULSE 66; TEMP 97.7
[2022-08-29] MEDS ORDERED: HYDROcodone/APAP 5-325MG 1 EACH TAB PO PRN (08:18)
[2022-08-29] MEDS: ONDANSETRON 4 MG/2 ML VIAL IVP PRN (08:20)
--- NOTE | 2022-08-29 11:14 | P.DS ---
Providers Expected date of discharge: 08/29/22 Attending physician: Eder Still Consults: 08/28/22 18:08 Consult Physician Routine Consulting Provider: Momo Lockwood Consult Reason/Comments: medical management Do you want consulting provider notified?: Already Contacted Primary care physician: Tunde Turner Hospital Course: Discharge diagnosis 1. Recurrent hiatal hernia 2. Dysphagia Hospital course This is a 36-year-old female with a known history of a recurrent hiatal hernia and dysphagia. She is status post laparoscopic Repair of recurrent hiatal hernia. Patient tolerated surgery well. Pain is controlled. She's tolerating diet. She is afebrile. She has been up and ambulating. She is stable for discharge. Physician Brazing Machine Operator note has been reviewed by physician. Signing provider agrees with the documented findings, assessment, and plan of care. Patient Condition at Discharge: Stable Plan - Discharge Summary Discharge Rx Participant: Yes New Discharge Prescriptions: New HYDROcodone/APAP 5-325MG [[place] 5-325] 1 tab PO Q6HR PRN 3 Days #12 tab PRN Reason: Pain Continue Fluticasone Nasal Mobile [Flonase Nasal Mobile] 1 spray EA NOSTRIL DAILY PRN PRN Reason: Allergy Symptoms Fexofenadine/Pseudoephedrine [Marielena-D 24 Hour Tablet] 1 tab PO DAILY Etonogestrel [Nexplanon] 1 implant SQ DIRECTED Changed Pantoprazole [Protonix] 40 mg PO BID #60 tab Discontinued Famotidine [Pepcid] 20 mg PO BID PRN PRN Reason: Indigestion Discharge Medication List Etonogestrel [Nexplanon] 1 implant SQ DIRECTED 02/21/21 [History] Fexofenadine/Pseudoephedrine [Marielena-D 24 Hour Tablet] 1 tab PO DAILY 08/23/22 [History] Fluticasone Nasal Mobile [Flonase Nasal Mobile] 1 spray EA NOSTRIL DAILY PRN 08/23/22 [History] HYDROcodone/APAP 5-325MG [[place] 5-325] 1 tab PO Q6HR PRN 3 Days #12 tab 08/29/22 [Rx] Pantoprazole [Protonix] 40 mg PO BID #60 tab 08/29/22 [Rx] Follow up Appointment(s)/Referral(s): Tunde Turner MD [Primary Care Provider] - 1 Week Eder Still MD [STAFF PHYSICIAN] - 1 Week Activity/Diet/Wound Care/Special Instructions: No driving while taking [place] No lifting over 10 pounds Shower daily. No soaking or tub baths for 2 weeks Very light activity until you are reevaluated at your follow up appointment with your surgeon Continue soft food diet until for 2 weeks Discharge Disposition: HOME SELF-CARE
[2022-08-29] MEDS: PANTOPRAZOLE 40 MG/10 ML VIAL IVP SCH (11:37)
--- NOTE | 2022-08-29 21:03 | P.PN ---
Progress Note - Text Progress Note Date: 08/29/22 - Chief Complaint Hiatal hernia repair This is a pleasant 36-year-old patient who follows with Dr. Tunde Turner. Patient was operated upon for recurrent hiatal hernia. Severe reflux symptoms. Often time patient get acid into her throat. Patient also had COVID. Her sense of smell is significantly affected. Postprocedure patient is on sheron clear liquid diet. Some discomfort at the operative site. No nausea vomiting. 08/29/2022: Patient did tolerate a diet. No abdominal pain. No nausea vomiting. Care was discussed with the patient. Has been out of bed. Has positive flatus Past medical history to include: Hiatal hernia. GERD. COVID. Social history: . Homemaker. No smoking or alcohol Physical examination: VITAL SIGNS: 97.7, 66, 15, 116/73, 97% room air GENERAL: BMI 40.9, reclining in bed, comfortable EYES: Pupils equal. Conjunctiva normal. HEENT: External appearance of nose and ears normal, oral cavity grossly normal. NECK: JVD unable to assess; masses not palpable. HEART: First and second heart sounds are normal; no edema. LUNGS: Respiratory rate normal; clear to auscultation. ABDOMEN: Soft, minimal epigastric tenderness, liver spleen not palpable, no masses palpable. PSYCH: Alert and oriented x3; mood and affect normal. INVESTIGATIONS, reviewed in the clinical context: 08/22/2022: White count 10.7 hemoglobin 14.2 platelets 275 Assessment and plan: -Laparoscopic repair of recurrent hiatal hernia or significant reflux symptoms Tolerating liquid diet -Severe GERD Protonix 40 mg twice a day -Morbid obesity BMI 40.9 Weight loss measures -Hyposmia, from prior COVID infection Discussed with patient. Questions answered. Thank you Dr. Still
== END 2022-08-29 12:48 | disposition home or self-care (01) ==
LOC: OR 05:45 → 5NMEDONC 08:57 → OR 08-29 12:48
PROVIDERS: ATTEND Surgery
DX: K44.9 Diaphragmatic hernia without obstruction or gangrene (principal); E66.01 Morbid (severe) obesity due to excess calories; Z68.41 Body mass index [BMI] 40.0-44.9, adult; K21.9 Gastro-esophageal reflux disease without esophagitis; K76.0 Fatty (change of) liver, not elsewhere classified; Z88.0 Allergy status to penicillin; Z88.1 Allergy status to other antibiotic agents; Z88.8 Allergy status to other drugs, medicaments and biological substances; Z98.890 Other specified postprocedural states; Z79.899 Other long term (current) drug therapy; Z87.891 Personal history of nicotine dependence
CPT/HCPCS: 81025; 43281; J2250; J1100; J2765 ×2; J0690; J2405 ×2; J1170 ×2; J1644